=== PATIENT | female | born 1955 | race Caucasian/White ===

== ENCOUNTER 2018-10-23 10:56 | Emergency (ER) | payer BC, SELFPAY ==
[2018-10-23 11:00] VITALS: BP 164/81; PULSE 65; RESP 18; TEMP 36.8; O2SAT 97
--- NOTE | 2018-10-23 11:22 | W.ED.GENAD ---
Discharge Plan Disposition Patient Disposition: HOME Condition: Stable Discharge Details Chief Complaint: EarProblem Clinical Impression: Otitis media Primary Care Provider: Michelle Grande ED Provider: Jaime Bliss Home Meds and New Rx's Prescriptions: New amoxicillin 875 mg tablet 875 mg PO BID Qty: 14 RF: 0 Continued atorvastatin [Lipitor] 40 MG tablet 1 tab PO DAILY RF: 0 atenolol 100 MG tablet 1 tab PO DAILY RF: 0 amlodipine 5 MG tablet 1 tab PO DAILY RF: 0 valacyclovir [Valtrex] 500 MG tablet 1 tab PO PRN PRNRF: 0 aspirin [Aspir-81] 81 MG tablet,delayed release (DR/EC) 1 tab PO DAILY RF: 0 hydrochlorothiazide 25 MG tablet 1 tab PO DAILY RF: 0 diazepam [Valium] 5 MG tablet 1 tab PO PRN PRNRF: 0 escitalopram oxalate [Lexapro] 20 MG tablet 1 tab PO DAILY RF: 0 bupropion HCl [Wellbutrin XL] 300 MG tablet extended release 24 hr 1 tab PO DAILY RF: 0 valsartan 40 mg Tablet 1 mg PO DAILY RF: 0 Discharge Instructions Instructions: Otitis Media (ED) Additional Instructions: Please take antibiotic's as prescribed and for the full course of treatment. You may use [id number] medication such as ibuprofen as needed for pain and discomfort. Return to the emergency department immediately for any new or significant worsening of symptoms otherwise follow-up with your primary care provider for reassessment if not improving over the next week. Referrals: Michelle Grande [Primary Care Provider] - (As needed for reassessment) Medical Decision Making Patient presenting to the emergency department for chief complaint of left ear pain. Patient states that this seemed to start yesterday with her noticing some cracking and echo feeling in her left ear and some subjective feeling of drainage but noted no drainage out of her ear. She thought her ears might of been plugged with wax so used a water dental cream maker but this did not help symptoms. This morning she noted some nausea and vomiting specifically after irrigating the left ear. Patient denies any fever chills, nasal congestion, headache, or other systemic symptoms. Physical exam shows unremarkable HEENT exam, normal right TM, left TM is bulging, mildly erythematous on the superior aspect, loss of landmarks, and purulent effusion noted behind TM. No sign of TM rupture is noted, is slight notation of white particulate in the ear canal but I feel that this could be more due to patient irrigation then otitis externa. Patient has no tenderness with palpation or movement of the external ear. I feel that patient more likely has otitis media, and was placed upon amoxicillin. Close return precautions were discussed along with [id number] pain management. After discussion of diagnosis and plan of care patient has no further needs, questions, or concerns and states clear understanding to return to the emergency department for any worsening symptoms. HPI General Mode of arrival: ambulatory. Date/Time Provider Initiated Documentation: 10/23/18 11:00. Limitations to Documentation: no limitations. Information obtained by: patient and RN notes reviewed. History of Present Illness 63 year old F presents to the emergency department with the chief complaint of left earache, described as moderate, with intensity rated at 2. Quality is described as other (pressure), and is localized to the left (ear). Patient started experiencing this day(s) (1) and it has been constant. No relieving factors improve symptom(s), Patient did receive the following treatments prior to arrival, other (Irrigation) Related Data Home Medications Medication Instructions Recorded Confirmed amlodipine 1 tab PO DAILY 12/03/13 10/23/18 aspirin [Aspir-81] 1 tab PO DAILY 12/03/13 10/23/18 atenolol 1 tab PO DAILY 12/03/13 10/23/18 atorvastatin [Lipitor] 1 tab PO DAILY 12/03/13 10/23/18 bupropion HCl [Wellbutrin XL] 1 tab PO DAILY 12/03/13 10/23/18 diazepam [Valium] 1 tab PO PRN PRN 12/03/13 10/23/18 escitalopram oxalate [Lexapro] 1 tab PO DAILY 12/03/13 10/23/18 hydrochlorothiazide 1 tab PO DAILY 12/03/13 10/23/18 valacyclovir [Valtrex] 1 tab PO PRN PRN 12/03/13 10/23/18 amoxicillin 875 mg PO BID #14 tab 10/23/18 valsartan 1 mg PO DAILY 10/23/18 10/23/18 Previous Rx's Medication Instructions Recorded amoxicillin 875 mg PO BID #14 tab 10/23/18 Allergies Allergy/AdvReac Type Severity Reaction Status Date / Time lisinopril Allergy Mild cough Unverified 10/23/18 11:11 General Stated Complaint: EarProblem [place]: 4 Review of Systems Constitutional Denies chills, Denies fever(s) and Denies headache(s) ENT Reports as per HPI, Reports vertigo, Reports dizziness, Reports ear discharge, Reports otalgia, Denies facial pain, Denies headache(s), Denies nasal congestion and Denies nasal discharge Gastrointestinal Reports nausea and Denies vomiting Neurologic Reports vertigo, Reports dizziness and Denies headache(s) [facility] Social History Smoking/Tobacco Use Status: Former Tobacco Use Alcohol Intake: current Alcohol Intake frequency: a few times a month Alcohol type: wine Drug use: Rarely Substance use type: marijuana Do you feel safe at home: Yes Do you feel safe in your relationship?: Yes Exam Const General: cooperative, comfortable and no acute distress Orientation: alert and awake HENPA Head: normal to inspection, normocephalic and atraumatic Ears: hearing grossly normal bilaterally, TM normal on the right, EAC's normal, mastoids normal, no periauricular adenopathy and TM abnormal bulging on the left, dull on the left, wth effusion purulent on the left, erythematous on the left and with loss of landmarks on the left General nose exam: external nose normal Neck Neck: normal visual inspection, full ROM, no lymphadenopathy, no meningeal signs, trachea midline and supple Resp Effort & Inspection: normal respiratory effort and able to speak in complete sentences Course Vital Signs Temperature 36.8 C 10/23/18 11:00 Pulse 65 10/23/18 11:00 Respiratory Rate 18 10/23/18 11:00 Blood Pressure 164/81 H 10/23/18 11:00 Pulse Oximetry 97 10/23/18 11:00 Temperature 36.8 C 10/23/18 11:00 Temperature Source Tympanic 10/23/18 11:00 Pulse 65 10/23/18 11:00 Respiratory Rate 18 10/23/18 11:00 Respiratory Effort Non-Labored 10/23/18 11:04 Blood Pressure 164/81 H 10/23/18 11:00 Blood Pressure Position Sitting 10/23/18 11:00 Pulse Oximetry 97 10/23/18 11:00 Oxygen Delivery Method Room Air 10/23/18 11:00 Oxygen Flow Rate 0 10/23/18 11:00 Pain Level 0 10/23/18 11:04
== END 2018-10-23 11:42 | disposition home or self-care (01) ==
PROVIDERS: Emergency Provider Nurse Practitioner Family; PCP Nurse Practitioner
DX: H66.92 Otitis media, unspecified, left ear (principal); Z87.891 Personal history of nicotine dependence
CPT/HCPCS: 99283

== ENCOUNTER 2019-01-31 11:27 | Outpatient (CLI) | payer BC, SELFPAY ==
--- NOTE | 2019-01-31 10:58 | DI.RAD_ITS ---
EXAM: XR SHOULDER LT COMPLETE 2+V INDICATION: pain. COMPARISON: No exams were available for comparison TECHNIQUE: 2D digital imaging was performed. FINDINGS: There is a declivity at the medial aspect of the humeral head, which could be related to an old frac ture. No glenoid defect is seen. There are mild degenerative changes at the AC joint, undersurface of the acromion and inferior glenoid.
== END 2019-01-31 11:47 ==
PROVIDERS: PCP Nurse Practitioner; Visit Provider Orthopaedic Surgery
DX: M25.512 Pain in left shoulder (principal); S49.92XA Unspecified injury of left shoulder and upper arm, initial encounter; M19.012 Primary osteoarthritis, left shoulder
CPT/HCPCS: 73030

== ENCOUNTER 2021-12-28 13:21 | Outpatient (CLI) | payer BC, SELFPAY ==
--- NOTE | 2021-12-28 13:00 | DI.RAD_ITS ---
Exam(s) XR KNEE LT 4V AP,LAT,HARLEEN,PAT EXAM: XR KNEE LT 4V AP,LAT,HARLEEN,PAT CLINICAL HISTORY: eval L knee pain. TECHNIQUE: 2D digital imaging was performed. Three views. COMPARISON: No exams were available for comparison FINDINGS: BONES: No acute fracture is present. No bony destructive lesion is seen. There is spurring at the me dial femoral condyle medial tibial plateau as well as patellofemoral joint. Spurring is also noted a t the tibial spines and femoral intercondylar notch. JOINTS: The joint spaces are maintained. The knee is normally aligned. No joint effusion is seen. SOFT TISSUE: Normal. IMPRESSION: Edvx-[id number] degenerative changes of the left knee. DATA REPOSITORY: RADIATION DOSE DELIVERED:
== END 2021-12-28 13:22 | disposition home or self-care (01) ==
LOC: DIORS 13:21
PROVIDERS: PCP Nurse Practitioner; Referring Provider Nurse Practitioner; Visit Provider Student in an Organized Health Care Education/Training Program
DX: M25.562 Pain in left knee (principal); M17.12 Unilateral primary osteoarthritis, left knee
CPT/HCPCS: 73564

== ENCOUNTER 2022-06-17 10:08 | Emergency (ER) | payer BC, SELFPAY ==
[2022-06-17 10:11] VITALS: BP 178/92; PULSE 76; RESP 18; O2SAT 97
[2022-06-17 10:17] VITALS: TEMP 36.8
[2022-06-17 10:33] VITALS: RESP 18
--- NOTE | 2022-06-17 10:45 | DI.CT_ITS ---
Exam(s) CT HEAD WO EXAM: CT HEAD WO CLINICAL HISTORY: left sided facial numbness. TECHNIQUE: Imaging Protocol: Axial computed tomography images with coronal and sagittal reformatted images were created and reviewed COMPARISON: No exams were available for comparison FINDINGS: Ventricles and Extra axial spaces: Normal in size and morphology for the patient's age. Hemorrhage: None. Cerebral parenchyma: Normal. Midline shift: None. Brainstem/Cerebellum: Normal. Calvarium: Normal. Visualized Paranasal sinuses/Mastoids: This may be a mucous retention within the left maxillary sinus . Mucous retention within left-sided ethmoid sinuses, left sphenoid and left frontal sinus. Soft Tissues: Unremarkable. IMPRESSION: Chronic sinus disease. No acute intracranial process. RADIATION DOSE DELIVERED: 690.64mGy.cm Total DLP DATA REPOSITORY: All CT scans at this facility are submitted to the National Radiology Data Registry (NRDR) Dose Index Registry (DIR) with the [employer] (A[employer]). RADIATION OPTIMIZATION: All CT scans at this facility use at least one of these dose optimization te chniques: automated exposure control; mA and/or kV adjustment per patient size (includes targeted exa ms where dose is matched to clinical indication); or iterative reconstruction.
--- NOTE | 2022-06-17 11:00 | ED.GENADUL_ITS ---
Discharge Plan Disposition Patient Disposition: Home Condition: Improving Discharge Details Chief Complaint: GenMedical Clinical Impression: Paresthesia Primary Care Provider: Michelle Grande ED Provider: Ubaldo Masters Home Meds and New Rx's Prescriptions: No Action atorvastatin [Lipitor] 40 MG tablet 1 tab PO DAILY atenolol 100 MG tablet 1 tab PO DAILY amlodipine 5 MG tablet 1 tab PO DAILY valacyclovir [Valtrex] 500 MG tablet 1 tab PO PRN PRN Patient Comments: never used hydrochlorothiazide 25 MG tablet 1 tab PO DAILY diazepam [Valium] 5 MG tablet 1 tab PO PRN PRN escitalopram oxalate [Lexapro] 20 MG tablet 1 tab PO DAILY bupropion HCl [Wellbutrin XL] 300 MG tablet extended release 24 hr 1 tab PO DAILY valsartan 40 mg Tablet 1 mg PO DAILY prednisone 20 mg tablet 60 mg PO DAILY Patient Comments: TAKE THREE TABLETS BY MOUTH EVERY DAY montelukast 10 mg tablet 20 mg PO DAILY albuterol sulfate 90 mcg/actuation HFA aerosol inhaler 2 inh INHALATION PRN PRN trazodone 50 mg Tablet 50 mg PO HS loratadine 10 mg Capsule 10 mg PO DAILY Delsym 30 mg/5 mL Liquid 30 mg PO BID PRN (Reason: Cough) guaifenesin [Mucinex] 600 mg Tablet Extended Release 12hr 600 mg PO PRN PRN Discharge Instructions Instructions: Paresthesia (ED) Additional Instructions: Please follow-up with neurology team and your primary care physician. Return to emergency department for any worsening symptoms. Medical Decision Making 66-year-old female history of depression anxiety, presents with numbness and tingling of left face over the last day worse over the last hour, has noted sinus pressure and ear congestion over the last several days. Recently completed a course of amoxicillin and developed some diarrhea. Also noted decreased taste and smell. However patient ruma taken multiple COVID test that were all negative. Patient has no chest pain or shortness of breath no cough or fevers. Has become tearful during examination when discussing psychosocial stressors as her has recently been diagnosed with lung cancer. Patient is alert and oriented appropriate interactive neurologically intact cranial nerves II through XII intact 5 and 5 strength upper and lower extremities ambulatory without assistance, normal speech, no ataxia. Lower suspicion for stroke must consider sinus infection versus anterior pressure lower suspicion for García's palsy given no motor component less likely trigeminal neuralgia given less painful more paresthesia in nature low suspicion for TIA or CVA. Must also consider anxiety/panic symptoms. Will obtain basic labs CT head, on examination no evidence of otitis media, no rashes 12: 03 patient resting comfortably no acute distress. Symptoms largely resolving. Evidence of chronic sinusitis on CT no evidence of stroke. Consider symptoms related to sinusitis versus steroid use versus anxiety however given presentation and history will refer to neurology for further eval. Home care instructions and return precautions given HPI General Date/Time Provider Initiated Documentation: 06/17/22 10:42 . HPI Narrative: 66-year-old female presents with left-sided facial numbness and tingling over the last hour has had some sinus pressure and ear discomfort over the last week as well as decreased sensation of sense of smell and taste, multiple negative COVID test at home. Denies cough nausea vomiting. Did have some diarrhea related to amoxicillin use within the last couple of weeks. Also started on prednisone a day ago. Endorses psychosocial stressors at home related to the recent diagnosis of her 's lung cancer. Related Data Home Medications Medication Instructions Recorded Confirmed amlodipine 5 mg tablet 1 tab PO DAILY 12/03/13 06/17/22 atenolol 100 mg tablet 1 tab PO DAILY 12/03/13 06/17/22 atorvastatin 40 mg tablet (Lipitor) 1 tab PO DAILY 12/03/13 06/17/22 bupropion HCl 300 mg 24 hr tablet, 1 tab PO DAILY 12/03/13 06/17/22 extended release (Wellbutrin XL) diazepam 5 mg tablet (Valium) 1 tab PO PRN PRN 12/03/13 06/17/22 escitalopram oxalate 20 mg tablet 1 tab PO DAILY 12/03/13 06/17/22 (Lexapro) hydrochlorothiazide 25 mg tablet 1 tab PO DAILY 12/03/13 06/17/22 valacyclovir 500 mg tablet 1 tab PO PRN PRN 12/03/13 06/17/22 (Valtrex) valsartan 40 mg tablet 1 mg PO DAILY 10/23/18 06/17/22 albuterol sulfate 90 mcg/actuation 2 inh inhalation PRN PRN 06/17/22 06/17/22 aerosol inhaler dextromethorphan HBr 30 mg/5 mL 30 mg PO BID PRN Cough 06/17/22 06/17/22 oral liquid guaifenesin 600 mg tablet, 600 mg PO PRN PRN 06/17/22 06/17/22 extended release 12 hr (Mucinex) loratadine 10 mg capsule 10 mg PO DAILY 06/17/22 06/17/22 montelukast 10 mg tablet 20 mg PO DAILY 06/17/22 06/17/22 prednisone 20 mg tablet 60 mg PO DAILY 06/17/22 06/17/22 trazodone 50 mg tablet 50 mg PO HS 06/17/22 06/17/22 Allergies Allergy/AdvReac Type Severity Reaction Status Date / Time lisinopril Allergy Mild cough Unverified 06/17/22 10:15 General Stated Complaint: GenMedical [place]: 3 Review of Systems Narrative: Review of Systems Constitutional: negative Eyes: negative ENT: negative Cardiovascular: negative Respiratory: negative Gastrointestinal: negative : negative Musculoskeletal: negative Skin: negative Neurologic: Facial tingling Psych: negative PFSH All Active Problems (Updated 06/17/22 @ 12:05 by Ubaldo Masters MD) Paresthesia (Acute) Internal derangement of left knee (Acute) Left knee pain (Acute) Contusion of left shoulder (Acute) Social History Smoking/Tobacco Use Status: Former Tobacco Use Smoking risk assessment performed?: Yes Alcohol Intake: current Alcohol Intake frequency: a few times a month Alcohol type: wine Drug use: Rarely Substance use type: does not use Current gender identity: female Do you feel safe at home: Yes Do you feel safe in your relationship?: Yes Exam Narrative Exam Narrative: Physical Examination General: alert, awake, cooperative, resting comfortably, no acute distress HEENT: normocephalic, atraumatic; PERRL, EOM intact, conjunctiva normal; no nasal discharge; moist mucous membranes, oral and pharyngeal mucosa normal, tolerating secretions Neck: supple, trachea midline; full ROM Chest: normal to inspection Respiratory: normal respiratory effort, speaking in full sentences, clear to auscultation, no wheezing, rales or rhonchi Cardiac: regular rate, regular rhythm, S1S2 intact, no murmurs rubs or gallops GI: abdomen soft, non-tender, non-distended; no palpable mass or hepatosplenomegaly Skin: no lesions, rashes or trauma appreciated Neuro: AAOx3, normal speech, moving all extremities; cranial nerves II through XII intact, 5 out of 5 strength upper and lower extremities, ambulatory without assist Psych: Tearful Course Vital Signs Vital signs: Vital Signs Pulse 76 06/17/22 10:11 Respiratory Rate 18 06/17/22 10:11 Blood Pressure 178/92 H 06/17/22 10:11 Pulse Oximetry 97 06/17/22 10:11 Temperature 36.8 C 06/17/22 10:17 Temperature Source Oral 06/17/22 10:17 Pulse 76 06/17/22 10:11 Respiratory Rate 18 06/17/22 10:33 Respiratory Effort Normal 06/17/22 10:33 Respiratory Depth Normal 06/17/22 10:33 Respiratory Pattern Normal 06/17/22 10:33 Blood Pressure 178/92 H 06/17/22 10:11 Pulse Oximetry 97 06/17/22 10:11 Oxygen Delivery Method Room Air 06/17/22 10:11 Oxygen Flow Rate 0 06/17/22 10:11 PAWSS Have you Been Recently Intoxicated or Drunk Within the Last 30 days?: No Have you Ever Experienced Previous Episodes of Alcohol Withdrawal?: No Have you ever Experienced Withdrawal Seizures?: No Have you ever Experienced Delirium Tremens(DT)s?: No Have you ever undergone Alcohol Rehabilitation Treatment (i.e, inpt ot outpatient treatment programs)?: No Have you ever Experienced Blackouts?: No Have you ever Combined Alcohol with other Downers within the last 90 days?: No Have you ever Combined Alcohol with any other Substance of Abuse during the last 90 days?: No Positive Blood Alcohol level on Presentation? [PCS.BAL]: No Evidence of Increased Autonomic Activity (i.e. HR>120, tremor, sweating, ana tation, nausea)?: No Result: 0
[2022-06-17 11:19] LABS: Abs Immature Grans 0.05 10^3/uL (0.0-0.06); Absolute Basophil Count 0.05 10^3/uL (0.0-0.2); Absolute Eosinophil Count 0.06 10^3/uL (0.0-0.7); Absolute Monocyte Count 0.39 10^3/uL (0.1-0.8); Basophils % 0.3; Eosinophils % 0.4; HCT 44.9 % (36.0-46.0); HGB 15.4 g/dL (11.2-15.7); Immature Grans % 0.3; Lymphocytes % 9.3; MCHC 34.3 % (32.0-36.0); MCV 82 fL (80-95); MPV 10.4 fL (8.0-11.0); Monocytes % 2.6; Neutrophils % 87.1; Platelet Count 337 10^3/uL (130-400); RDW 12.3 % (11.7-14.6); RDW-SD 36.5 fL; WBC 15.03 10^3/uL (4.4-10.8)
[2022-06-17] MEDS: LORazepam 2 MG/ML VIAL 1 MG IVP (11:25)
[2022-06-17 11:27] LABS: Absolute Neutrophil Count 13.09 10^3/uL (1.2-6.7)
[2022-06-17 11:31] LABS: ALT 53 U/L (14-59); AST 39 U/L (15-37); Albumin 4.8 g/dL (3.4-5.0); Alkaline Phosphatase 118 U/L (46-116); Anion Gap 10.2 mmol/L (3-11); BUN 18 mg/dL (7-18); Bilirubin, Total 0.9 mg/dL (0.2-1.0); CO2 29.8 mmol/L (21.0-32.0); CREATININE 1.1 mg/dL (0.55-1.02); Calcium 9.7 mg/dL (8.5-10.1); Chloride 98 mmol/L (98-107); Estimated GFR 55.76 (mL/min/1.73m2); Glucose 145 mg/dL (74-106); Sodium 138 mmol/L (136-145); Total Protein 8.8 g/dL (6.4-8.2)
[2022-06-17 12:15] VITALS: BP 142/85; PULSE 87; RESP 18; O2SAT 98
--- NOTE | 2022-06-17 14:58 | NUR.NOTE ---
Nursing Note: Referral faxed to [facility] Neurology for paresthesias/in 1 week.
== END 2022-06-17 12:16 | disposition home or self-care (01) ==
PROVIDERS: Emergency Provider Emergency Medicine; PCP Nurse Practitioner
DX: R20.2 Paresthesia of skin (principal); R19.7 Diarrhea, unspecified; R43.8 Other disturbances of smell and taste; J34.89 Other specified disorders of nose and nasal sinuses; H83.8X9 Other specified diseases of inner ear, unspecified ear
CPT/HCPCS: 80053; 96374; 99284; 70450; 85025; J2060

== ENCOUNTER 2022-09-14 01:29 | Emergency (ER) | payer BC, SELFPAY ==
[2022-09-14] VITALS (52 sets, daily range): BP systolic 161; BP diastolic 78; PULSE 74–78; RESP 4–26; TEMP 37.1; O2SAT 87–96
--- NOTE | 2022-09-14 01:30 | RT.EKG_ITS ---
APPROVED REPORT Exam: Resting ECG Reason for Exam: sob Patient Location: E HR:71 bpm ECG Measurements Heart Rate 71 AXIS WV 191 P 64 QRSd 108 QRS -30 QT 473 T 38 QTc 514 Conclusion Sinus rhythm...normal P axis, V-rate 60- 99 Incomplete RBBB and LAFB...axis(240,-40), S>R II III aVF Prolonged QT interval...QTc >510mS sinus rhythm, non ischemic
--- NOTE | 2022-09-14 02:00 | DI.RAD_ITS ---
Exam(s) XR CHEST 2V PA LATERAL EXAM: XR CHEST 2V PA LATERAL CLINICAL HISTORY: cough TECHNIQUE: 2D digital imaging was performed of the chest. Two images were obtained. PA and lateral views were obtained. COMPARISON: No exams were available for comparison FINDINGS: MEDIASTINUM: Normal. HEART: Normal. PULMONARY VASCULATURE: Normal. LUNGS: Clear. PLEURAL SPACE: No pleural effusion or pneumothorax. BONE:Within normal limits for the patient's age. OTHER FINDINGS:Normal. IMPRESSION: No acute pulmonary findings. DATA REPOSITORY: RADIATION DOSE DELIVERED:
--- NOTE | 2022-09-14 02:13 | ED.GENADUL_ITS ---
Discharge Plan Disposition Patient Disposition: Home Condition: Stable Discharge Details Clinical Impression: Bronchitis, Acute asthma exacerbation, Sinusitis Primary Care Provider: Michelle Grande ED Provider: Luis Long Home Meds and New Rx's Prescriptions: New amoxicillin-pot clavulanate 875-125 mg tablet 1 tab PO BID Qty: 14 0RF Continued atorvastatin [Lipitor] 40 MG tablet 1 tab PO DAILY atenolol 100 MG tablet 1 tab PO DAILY amlodipine 5 MG tablet 1 tab PO DAILY valacyclovir [Valtrex] 500 MG tablet 1 tab PO PRN PRN Patient Comments: never used hydrochlorothiazide 25 MG tablet 1 tab PO DAILY diazepam [Valium] 5 MG tablet 1 tab PO PRN PRN escitalopram oxalate [Lexapro] 20 MG tablet 1 tab PO DAILY bupropion HCl [Wellbutrin XL] 300 MG tablet extended release 24 hr 1 tab PO DAILY valsartan 40 mg Tablet 1 mg PO DAILY prednisone 20 mg tablet 60 mg PO DAILY Patient Comments: TAKE THREE TABLETS BY MOUTH EVERY DAY montelukast 10 mg tablet 20 mg PO DAILY albuterol sulfate 90 mcg/actuation HFA aerosol inhaler 2 inh INHALATION PRN PRN trazodone 50 mg Tablet 50 mg PO HS loratadine 10 mg Capsule 10 mg PO DAILY dextromethorphan HBr 30 mg/5 mL Liquid 30 mg PO BID PRN (Reason: Cough) guaifenesin [Mucinex] 600 mg Tablet Extended Release 12hr 600 mg PO PRN PRN Discharge Instructions Instructions: Asthma (ED), Sinusitis (ED), Acute Bronchitis (ED) Additional Instructions: Continues albuterol inhaler with spacer, 2 puffs inhaled every 4-6 hours as needed for wheezing. Take full course of antibiotic as prescribed. Please contact your primary care physician to arrange follow-up for later this week. Return to the ER immediately for any worsening or new concerning symptoms. Referrals: Michelle Grande [Primary Care Provider] - Medical Decision Making 230 --67-year-old female with history of hypertension, hyperlipidemia, treated for asthma, here with increasing cough and associated shortness of breath with sinus and chest congestion. Patient is saturating in the low to mid 90s on room air. Patient is hypertensive. Patient has bilateral expiratory wheeze and rhonchi. Suspect bronchitis and sinusitis with asthma exacerbation. Consider pneumonia. Plan to obtain chest x-ray. I will give DuoNeb treatment. I will initiate antibiotic treatment with Augmentin. 350 --chest x-ray was reviewed and interpreted by radiology: No acute findings, lungs noted to be unremarkable with no consolidation. Heart noted to be unremarkable with no cardiomegaly. No pleural effusion. Patient was reassessed and feeling better after neb treatment. Repeat pulse ox 96 to 98% while I was speaking with her. I will give albuterol inhaler with spacer. Plan to continue full course of antibiotic. Plan for close outpatient follow-up this week with PCP given mild hypoxia. HPI General Mode of arrival: ambulatory . Date/Time Provider Initiated Documentation: 09/14/22 01:48 . Limitations to Documentation: no limitations . Information obtained by: patient . HPI Narrative: 67-year-old female with history of hypertension and chronic intermittent wheeze, here with chief complaint of cough. Patient notes she has had sinus and chest congestion over the past 2 to 3 weeks. Now having increased cough over the past week with associated shortness of breath. Symptoms worse at night. No associated fevers. She does note worsening sinus congestion left maxillary sinus as well. Patient states she used albuterol inhaler about 30 minutes prior to arrival. She states she now uses ProAir and feels its not as effective as pr ior albuterol inhaler. She has no associated chest pain. No leg swelling or calf pain. Patient has been in healthcare facilities a lot recently with the passing of her . Related Data Home Medications Medication Instructions Recorded Confirmed amlodipine 5 mg tablet 1 tab PO DAILY 12/03/13 09/14/22 atenolol 100 mg tablet 1 tab PO DAILY 12/03/13 09/14/22 atorvastatin 40 mg tablet (Lipitor) 1 tab PO DAILY 12/03/13 09/14/22 bupropion HCl 300 mg 24 hr tablet, 1 tab PO DAILY 12/03/13 09/14/22 extended release (Wellbutrin XL) diazepam 5 mg tablet (Valium) 1 tab PO PRN PRN 12/03/13 09/14/22 escitalopram oxalate 20 mg tablet 1 tab PO DAILY 12/03/13 09/14/22 (Lexapro) hydrochlorothiazide 25 mg tablet 1 tab PO DAILY 12/03/13 09/14/22 valacyclovir 500 mg tablet 1 tab PO PRN PRN 12/03/13 09/14/22 (Valtrex) valsartan 40 mg tablet 1 mg PO DAILY 10/23/18 09/14/22 albuterol sulfate 90 mcg/actuation 2 inh inhalation PRN PRN 06/17/22 09/14/22 aerosol inhaler dextromethorphan HBr 30 mg/5 mL 30 mg PO BID PRN Cough 06/17/22 09/14/22 oral liquid guaifenesin 600 mg tablet, 600 mg PO PRN PRN 06/17/22 09/14/22 extended release 12 hr (Mucinex) loratadine 10 mg capsule 10 mg PO DAILY 06/17/22 09/14/22 montelukast 10 mg tablet 20 mg PO DAILY 06/17/22 09/14/22 prednisone 20 mg tablet 60 mg PO DAILY 06/17/22 09/14/22 trazodone 50 mg tablet 50 mg PO HS 06/17/22 09/14/22 amoxicillin 875 mg-potassium 1 tab PO BID #14 tabs 09/14/22 clavulanate 125 mg tablet Previous Rx's Medication Instructions Recorded amoxicillin 875 mg-potassium 1 tab PO BID #14 tabs 09/14/22 clavulanate 125 mg tablet Allergies Allergy/AdvReac Type Severity Reaction Status Date / Time lisinopril Allergy Mild cough Unverified 06/17/22 10:15 General Stated Complaint: RespSymp [place]: 3 Review of Systems All systems reviewed & are unremarkable except as noted in HPI and below Constitutional Constitutional: Denies fever(s) Cardiovascular Cardiovascular: Denies chest pain and Reports dyspnea Respiratory Respiratory: Reports cough and Reports dyspnea PFSH All Active Problems (Updated 09/14/22 @ 03:54 by Luis Long MD) Bronchitis (Acute) Acute asthma exacerbation (Acute) Sinusitis (Acute) Internal derangement of left knee (Acute) Left knee pain (Acute) Contusion of left shoulder (Acute) Social History Smoking/Tobacco Use Status: Former Tobacco Use Smoking risk assessment performed?: Yes Alcohol Intake: current Alcohol Intake frequency: a few times a month Alcohol type: wine Drug use: Rarely Substance use type: does not use Housing: house Current gender identity: female Do you feel safe at home: Yes Do you feel safe in your relationship?: Yes Exam Const General: cooperative and no acute distress HENMT Mouth: mucous membranes dry Throat: posterior oropharynx normal Eyes Conjunctivae: normal conjunctivae Sclera: normal sclerae Neck Neck: trachea midline and supple Resp Effort & Inspection: normal respiratory effort, able to speak in complete sente nces, not labored and not tachypneic Auscultation: no rales, rhonchi and wheezes expiratory wheezes Cardio Rate: regular rate and not tachycardic Rhythm: regular rhythm Heart Sounds: no murmurs GI Palpation: soft, not firm, no guarding, no masses, not rigid and nontender Skin General skin exam: no rashes or lesions noted Neuro General: patient alert, patient awake and tone normal Extrem General: no calf tenderness and no edema Psych Appearance: grossly normal Mental Status: mental status grossly normal Course Vital Signs Vital signs: Vital Signs Temperature 37.1 C 09/14/22 01:32 Pulse 78 09/14/22 01:32 Respiratory Rate 19 09/14/22 01:32 Blood Pressure 161/78 H 09/14/22 01:32 Pulse Oximetry 92 09/14/22 01:32 Temperature 37.1 C 09/14/22 01:32 Temperature Source Oral 09/14/22 01:32 Pulse 78 09/14/22 01:32 Respiratory Rate 19 09/14/22 01:32 Respiratory Effort Short of Breath 09/14/22 01:48 Respiratory Depth Normal 09/14/22 01:48 Blood Pressure 161/78 H 09/14/22 01:32 Blood Pressure Position Sitting 09/14/22 01:32 Pulse Oximetry 92 09/14/22 01:32 Oxygen Delivery Method Room Air 09/14/22 01:32 Oxygen Flow Rate 0 09/14/22 01:32 Pain Level 0 09/14/22 01:32
[2022-09-14] MEDS: Amoxicillin 875/Clav. 125 TAB PO (02:19)
[2022-09-14] MEDS: Albuterol/Ipratropium 3 ML UPD VIAL UPD (02:19)
[2022-09-14 02:59] LABS: Source Nasal/Nares
[2022-09-14 03:30] LABS: COVID-19 PCR Negative (Negative)
--- NOTE | 2022-09-14 03:45 | DI.VRAD_ITS ---
PROCEDURE INFORMATION: Exam: XR Chest Exam date and time: 09/14/2022 2:32 AM Age: 67 years old Clinical indication: Cough TECHNIQUE: Imaging protocol: Radiologic exam of the chest. Views: 2 views. COMPARISON: CR XR SHOULDER LT COMPLETE 2+V 01/31/2019 10:58 AM FINDINGS: Lungs: Unremarkable. No consolidation. Pleural spaces: Unremarkable. No pleural effusion. No pneumothorax. Heart/Mediastinum: Unremarkable. No cardiomegaly. Bones/joints: Unremarkable. IMPRESSION: No acute findings. Dictated and Authenticated by: Bruno Gilbert MD. Ordering:JACLYN Smith MD
[2022-09-14] MEDS: Albuterol HFA 8 GM 60 PUFF INH IH (03:55)
[2022-09-14] MEDS: Inhaler, Assist Device 1 EACH MC (03:56)
--- NOTE | 2022-09-14 08:16 | NUR.NOTE ---
Nursing Note: Patient asking about how to get her prescriptions
--- NOTE | 2022-09-16 11:15 | NUR.NOTE ---
Duplicate order cancelled. Nursing Note:
== END 2022-09-14 04:07 | disposition home or self-care (01) ==
PROVIDERS: Emergency Provider Student in an Organized Health Care Education/Training Program; PCP Nurse Practitioner
DX: J40 Bronchitis, not specified as acute or chronic; J32.9 Chronic sinusitis, unspecified; I45.2 Bifascicular block; I10 Essential (primary) hypertension; E78.5 Hyperlipidemia, unspecified; Z79.899 Other long term (current) drug therapy; Z20.822 Contact with and (suspected) exposure to COVID-19
CPT/HCPCS: 87635; 93005; 99285; 71046; 93010; 99283; J7620